=== PATIENT | female | born 1990 | race Caucasian/White ===

== ENCOUNTER → 2023-10-23 11:13 | Outpatient (CLI) | payer OTHER, SELFPAY ==
[2023-10-23 12:09] LABS: Add Manual Diff / Slide Review NO; Basophils Absolute Auto 100 /uL (0-100); Basophils Percent Auto 1.5 % (0-2); Eosinophils Absolute Auto 100 /uL (0-450); Eosinophils Percent Auto 0.9 % (2-4); Hematocrit 43.1 % (36-46); Lymphocytes Absolute Auto 1800 /uL (1100-4500); Lymphocytes Percent Auto 24.7 % (25-40); Mean Corpuscular HGB Conc 34.8 % (30-36); Mean Corpuscular Hemoglobin 31.3 PG (26-34); Mean Corpuscular Volume 89.9 fL (80-100); Monocytes Absolute Auto 400 /uL (0-900); Monocytes Percent Auto 5.5 % (3-14); Neutrophils Absolute Auto 4800 /uL (1500-7000); Neutrophils Percent Auto 67.4 % (50-75); Platelet Count 420 X10^3/uL (150-400); Red Cell Distribution Width 12.3 % (11.6-14.8); White Blood Cell Count 7.2 X10^3/uL (4.5-11.0)
[2023-10-23 12:35] LABS: Alanine Aminotransferase 17 IU/L (<35); Albumin 4.7 g/dL (3.5-5.0); Albumin Globulin Ratio 1.6 (1.0-2.8); Alkaline Phosphatase 97 U/L (38-126); Aspartate Aminotransferase 27 IU/L (14-36); BUN Creatinine Ratio 21.2 (6-22); Bilirubin Total 0.6 mg/dL (0.2-1.3); Blood Urea Nitrogen 14 mg/dL (7-17); Calcium 10.2 mg/dL (8.4-10.2); Carbon Dioxide 24 mmol/L (22-32); Chloride 107 mmol/L (98-107); Estimated Glomerular Filt Rate > 60 mL/min (>60); Glucose 98 mg/dL (70-100); HEMOLYSIS < 15 (0-50); Potassium 3.8 mmol/L (3.4-5.1); Sodium 140 mmol/L (137-145); Total Protein 7.7 g/dL (6.3-8.2)
[2023-10-23 12:48] LABS: Free T3, Triiodothyronine Free 3.52 pg/mL (2.77-5.27); Free T4, Direct Thyroxine 0.98 ng/dL (0.78-2.19)
[2023-10-23 13:01] LABS: Thyroid Stimulating Hormone 1.36 uIU/mL (0.47-4.68)
[2023-10-24 08:15] LABS: Thyroid Peroxidase Antibodies 27 IU/mL (0-34)
[2023-10-24 20:12] LABS: Anti Thyroglobulin Antibody 3.6 IU/mL (0.0-0.9)
[2023-10-26 15:51] LABS: HIV 1 & 2 Ab/Ag 4th Gen Combo NEGATIVE (NEGATIVE); Hep C Virus Ab w/Reflex Quant NEGATIVE s/c (NEGATIVE)
== END ==
PROVIDERS: PCP Family Medicine; Referring Provider Family Medicine; Visit Provider Family Medicine
DX: Z11.4 Encounter for screening for human immunodeficiency virus [HIV] (principal); Z11.59 Encounter for screening for other viral diseases; E04.1 Nontoxic single thyroid nodule; R63.5 Abnormal weight gain; R53.83 Other fatigue
CPT/HCPCS: 36415; 80053; 84439; 84443; 84481; 85025; 86376; 86800; 86803; 87389

== ENCOUNTER → 2023-11-06 10:02 | Outpatient (CLI) | payer OTHER, SELFPAY ==
--- NOTE | 2023-11-06 10:03 | DI.US.S_ITS ---
LIMITED ULTRASOUND OF RIGHT BREAST: 11/06/2023 CLINICAL: Bloody nipple discharge right breast. Comparison is made [facility]. Color flow and real-time ultrasound of the right breast retroareolar were performed. Campbell scale images of the real-time examination were reviewed. No significant abnormalities were seen sonographically in the right breast. No intraductal mass. Minimally prominent ducts are benign. IMPRESSION: BENIGN There is no sonographic evidence of malignancy. Exam findings were conveyed to the patient. Patient describes right bloody nipple discharge. Patient is advised to monitor for significant change. Clinical follow-up is recommended. If symptoms persist, recommend breast MRI for further evaluation. Otherwise, screening mammogram at age 40. This exam was interpreted at Station ID: [id number]. Electronically Signed By: Matt Leone M.D. slc/:11/06/2023 11:44:08 letter sent: Clinical Evaluation Ultrasound BI-RADS: 2 Benign
--- NOTE | 2023-11-06 10:03 | DI.MG.S_ITS ---
BILATERAL DIGITAL DIAGNOSTIC MAMMOGRAM 3D/2D: 11/06/2023 CLINICAL: Right bloody nipple discharge. Baseline exam. No prior exams were available for comparison. Both breasts are heterogeneously dense, which may obscure small masses (category c / 51-75% glandular tissue). No significant masses, calcifications, or other findings are seen in either breast. IMPRESSION: INCOMPLETE: NEEDS ADDITIONAL IMAGING EVALUATION No mammographic evidence of malignancy. A targeted ultrasound is recommended and will immediately follow. Based on the Tyrer Cuzick model (a risk assessment model) the patient's lifetime risk is 13.5% and her 10 year risk is 0.8%. According to the ACR, ACS, and NCCN guidelines, an annual breast MRI exam along with mammogram is recommended if the patient's lifetime risk is 20% or greater. This exam was interpreted at Station ID: [id number]. NOTE: For mammograms, a report in lay terms will be sent to the patient. Approximately 15% of breast malignancies will not be visualized mammographically. In the management of a palpable breast mass, a negative mammogram must not discourage biopsy of a clinically suspicious lesion. Electronically Signed By: Matt Leone M.D. slc/:11/06/2023 11:00:18 ACR BI-RADS Category 0: Incomplete 3340F
== END ==
LOC: MAMMO 10:02
PROVIDERS: PCP Family Medicine; Referring Provider Family Medicine; Visit Provider Family Medicine
DX: R92.2 Inconclusive mammogram (principal); R92.333 Mammographic heterogeneous density, bilateral breasts; N64.52 Nipple discharge
CPT/HCPCS: 76642; 77066; G0279

== ENCOUNTER → 2023-11-09 15:35 | Outpatient (CLI) | payer OTHER, SELFPAY ==
--- NOTE | 2023-11-09 15:36 | DI.US.S_ITS ---
PROCEDURE: US THYROID INDICATIONS: Thyroid nodule, elevated thyroid antibodies TECHNIQUE: Real-time scanning was performed of the thyroid gland, with image documentation. COMPARISON: Prior thyroid ultrasound report dated 06/26/2022.. FINDINGS: Thyroid: Right lobe measures 5.8 x 2.2 x 2.1 cm. Left lobe measures 5.9 x 1.4 x 1.6 cm. Isthmus is 0.3 cm thick. Echotexture is heterogeneous. Nodule number: 1 Location: Right inferior Size: Unchanged at 2.7 cm. Composition: Solid Echogenicity: Isoechoic Shape: wider than tall. Margins: Smooth Echogenic foci: Absent Total points: 3 ACR TI-RADS category: Mildly suspicious IMPRESSION: Stable appearance of 2.7 cm mildly suspicious right thyroid nodule. Based on ACR guidelines, ultrasound-guided FNA of the right nodule is recommended, if the nodules has not previously been sampled with a benign diagnosis. Please see chart below. ACR TI-RADS definitions and recommendations: TI-RADS 1 (benign): 0 points. FNA not needed. TI-RADS 2 (not suspicious): 2 points. FNA not needed. TI-RADS 3 (mildly suspicious): 3 points. * FNA if 2.5 cm or larger, follow up if 1.5 cm or larger (at 1, 3, and 5 years). TI-RADS 4 (moderately suspicious): 4-6 points. * FNA if 1.5 cm or larger, follow up if 1 cm or larger (at 1, 2, 3, and 5 years). TI-RADS 5 (highly suspicious): 7 points or more. * FNA if 1 cm or larger, follow up if 0.5 cm or larger (every year for 5 years). Dictated by: Alan Rizvi [facility] Interpreted: Colleen Gallagher MD on 11/09/2023 at 16:52 Transcribed by: DALIA on 11/09/2023 at 16:54 Approved by: Colleen Gallagher M.D. on 11/09/2023 at 17:22
== END ==
LOC: US 15:36
PROVIDERS: PCP Family Medicine; Referring Provider Family Medicine; Visit Provider Family Medicine
DX: E04.1 Nontoxic single thyroid nodule (principal); R63.5 Abnormal weight gain; R53.83 Other fatigue
CPT/HCPCS: 76536

== ENCOUNTER 2023-12-16 13:01 | Day surgery (SDC) | payer OTHER, SELFPAY ==
--- NOTE | 2023-12-16 | PATH_ITS ---
[facility] Accession Number: [id number] No. of containers..04 Tissue . 01 Material submitted: . PART A: gastrointestinal site - GASTRIC BX PART B: duodenum - DUODENAL BIOPSY PART C: esophagus - ESOPHAGEAL BIOPSY PART D: colon - COLON BIOPSIES . 01 Clinical history: . C) FOR EOE . 01 Diagnosis: Part A: GASTRIC BX: Gastric mucosa with mild chronic inflammation. No Helicobacter organisms identified. No intestinal metaplasia, dysplasia, or malignancy identified. . Part B: DUODENAL BIOPSY: Duodenal mucosa with no diagnostic alterations. No active inflammation and no evidence of celiac disease. . Part C: ESOPHAGEAL BIOPSY: Squamous mucosa with focal slight erosion, suggestive of reflux. No infectious organisms identified. No evidence of eosinophilic esophagitis. . Part D: COLON BIOPSIES: Colonic mucosa with no diagnostic alterations. No active inflammation, granulomas, dysplasia, or malignancy identified. No evidence of colitis. [facility] 12/23/2023 1517 Local . 01 Electronically signed: . Joaquín Espinal MD, Pathologist NPI- [id number] . 01 Gross description: . Part A: GASTRIC BX: Received in formalin are 2 fragment(s) of leavitt, soft tissue measuring 0.3 x 0.2 x 0.2 cm to 0.5 x 0.2 x 0.1 cm submitted entirely in 1 cassette(s) . Part B: DUODENAL BIOPSY: Received in formalin are 2 fragment(s) of leavitt, soft tissue measuring 0.2 x 0.2 x 0.2 cm to 0.3 x 0.3 x 0.2 cm submitted entirely in 1 cassette(s) . Part C: ESOPHAGEAL BIOPSY: Received in formalin are 2 fragment(s) of leavitt, soft tissue measuring 0.2 x 0.2 x 0.2 cm to 0.4 x 0.2 x 0.2 cm submitted entirely in 1 cassette(s) . Part D: COLON BIOPSIES: Received in formalin are multiple fragment(s) of leavitt, soft tissue measuring 0.1 x 0.1 x 0.1 cm to 0.3 x 0.3 x 0.2 cm submitted entirely in 1 cassette(s) /[facility] 12/23/2023 1517 Local . 01 Microscopic: . Part A: GASTRIC BX: An immunohistochemical stain was performed to evaluate for Helicobacter organisms and is negative. The control stains appropriately. * This test was developed and its performance characteristics determined by [facility]. It has not been cleared or approved by the U.[place]. Food and Drug Administration. The FDA has determined that such clearance or approval is not necessary. This test is used for clinical purposes. It should not be regarded as investigational or for research. . Part C: ESOPHAGEAL BIOPSY: An ABPAS stain was performed to evaluate for fungal organisms, and is negative. The control stains appropriately. . 01 Pathologist provided ICD-10: K21.00, K29.50, R19.7 . 01 CPT . 253655, 882489, 580975, 653152, 556271, C59050 Specimen Comment: A courtesy copy of this report has been sent to [phone] Performed at: [address] [address], [place], [place] [id number] MD Joaquín Espinal MD Phone: [phone]
[2023-12-16 13:38] VITALS: BP 128/89; PULSE 115; RESP 16; TEMP 36.6; O2SAT 98
--- NOTE | 2023-12-16 13:53 | PM.PREOP ---
Pre-operative Note Interval Note History & Physical reviewed/Exam performed by Physician: Yes Changes to H&P: No ASA Class (for procedural sedation): II (Will)
--- NOTE | 2023-12-16 13:54 | PM.OP.EC ---
Operative Date/Time/Diagnoses Date of procedure: 12/16/23 Pre-op diagnosis: See indication and findings Procedure & Clinicians Study performed: EGD and colonoscopy Indications: Dyspepsia and diarrhea Surgeon: Chicho San Procedure Notes Procedure in detail: After informed consent was obtained the patient was placed in left lateral decubitus position. Video upper scope was placed into the oropharynx and with the patient's help swallowed into the esophagus. The esophagus stomach and duodenum were carefully examined. On withdrawal, retroflexed view the GE junction was performed. The scope was removed. The patient tolerated procedure well. The patient was then turned and the colonoscope substituted and the colonoscope was easily passed the cecum. Terminal ileum was identified. On slow withdrawal mucosa was carefully examined. The scope was removed. The patient tolerated the procedure well. Blood loss none Complications none Sedation mac Findings EGD 1. Esophageal longitudinal markings though not narrow furrows but rather parallel erythematous streaks. Biopsies taken to rule out eosinophilic esophagitis 2. Scattered gastric erythema in the antrum biopsies taken to rule out Helicobacter 3. Normal duodenal bulb and sweep biopsies taken to rule out celiac disease Colonoscopy 1. Terminal ileum identified and intubated. Mucosa entirely normal 2. Normal colonoscopy to cecum. Random biopsies taken to rule out microscopic colitis Will be in touch regarding biopsy results. She should subsequently follow-up with Arnol ROSARIO
[2023-12-16] MEDS: LACTATED RINGERS 1,000 ML 42 ML IV (13:59)
--- NOTE | 2023-12-16 14:01 | SUR.PREOP ---
patient unable to void. states no way can be at this time. is ok to proceed without HCG. [employer] CON[employer]ANT aware and agrees.
[2023-12-16 14:53] VITALS: BP 83/46; PULSE 95; RESP 20; TEMP 36.3; O2SAT 91
[2023-12-16 14:57] VITALS: BP 94/60; PULSE 90; RESP 19; O2SAT 91
[2023-12-16 15:03] VITALS: BP 96/68; PULSE 104; RESP 13; O2SAT 96
[2023-12-16 15:08] VITALS: BP 97/62; PULSE 94; RESP 15; O2SAT 98
[2023-12-16 15:14] VITALS: BP 106/66; PULSE 95; RESP 14; TEMP 36.3; O2SAT 98
== END 2023-12-16 15:34 | disposition home or self-care (01) ==
PROVIDERS: PCP Family Medicine; Referring Provider Internal Medicine Gastroenterology; Visit Provider Internal Medicine Gastroenterology
PROC: 0DJ08ZZ Inspection of Upper Intestinal Tract, Via Natural or Artificial Opening Endoscopic (ICD-10-PCS; CPT 45380; principal; 2023-12-16 14:00)
PROC: 0DJD8ZZ Inspection of Lower Intestinal Tract, Via Natural or Artificial Opening Endoscopic (ICD-10-PCS; CPT 45378; 2023-12-16 14:00)
DX: R19.7 Diarrhea, unspecified (principal); R10.13 Epigastric pain; K29.50 Unspecified chronic gastritis without bleeding
CPT/HCPCS: 45380; 43239; J2405; J2704

== ENCOUNTER → 2024-03-02 13:58 | Outpatient (CLI) | payer OTHER, SELFPAY ==
[2024-03-02 14:42] LABS: Add Manual Diff / Slide Review NO; Basophils Absolute Auto 100 /uL (0-100); Basophils Percent Auto 0.9 % (0-2); Eosinophils Absolute Auto 100 /uL (0-450); Eosinophils Percent Auto 1.2 % (2-4); Hematocrit 40.8 % (36-46); Hemoglobin 14.5 g/dL (12.0-16.0); Lymphocytes Absolute Auto 1900 /uL (1100-4500); Lymphocytes Percent Auto 20.1 % (25-40); Mean Corpuscular HGB Conc 35.4 % (30-36); Mean Corpuscular Volume 90.3 fL (80-100); Monocytes Absolute Auto 500 /uL (0-900); Neutrophils Absolute Auto 6900 /uL (1500-7000); Neutrophils Percent Auto 72.8 % (50-75); Platelet Count 382 X10^3/uL (150-400); Red Blood Cell Count 4.52 X10^6/uL (4.0-5.2); Red Cell Distribution Width 12.7 % (11.6-14.8); White Blood Cell Count 9.4 X10^3/uL (4.5-11.0)
[2024-03-02 15:06] LABS: HEMOLYSIS < 15 (0-50); Iron 106 ug/dL (37-170)
[2024-03-02 15:07] LABS: Alanine Aminotransferase 19 IU/L (<35); Albumin 4.6 g/dL (3.5-5.0); Albumin Globulin Ratio 1.8 (1.0-2.8); Alkaline Phosphatase 77 U/L (38-126); Aspartate Aminotransferase 27 IU/L (14-36); Bilirubin Total 0.7 mg/dL (0.2-1.3); Blood Urea Nitrogen 14 mg/dL (7-17); Calcium 10.1 mg/dL (8.4-10.2); Carbon Dioxide 21 mmol/L (22-32); Chloride 106 mmol/L (98-107); Creatine Kinase 89 U/L (30-135); Estimated Glomerular Filt Rate > 60 mL/min (>60); Globulin 2.5 g/dL (1.7-4.1); Glucose 105 mg/dL (70-100); HEMOLYSIS < 15 (0-50); Potassium 3.9 mmol/L (3.4-5.1); Sodium 138 mmol/L (137-145); Total Protein 7.1 g/dL (6.3-8.2)
[2024-03-02 15:17] LABS: Percent Iron Saturation 35 % (15-50); Total Iron Binding Capacity 305 ug/dL (265-497); Transferrin 248 mg/dL (206-381)
[2024-03-02 15:25] LABS: Free T3, Triiodothyronine Free 3.75 pg/mL (2.77-5.27); Free T4, Direct Thyroxine 0.97 ng/dL (0.78-2.19)
[2024-03-02 15:38] LABS: Thyroid Stimulating Hormone 0.874 uIU/mL (0.47-4.68)
[2024-03-02 15:45] LABS: Ferritin 51 ng/mL (6-137)
[2024-03-02 16:00] LABS: Vitamin B12 Reflex MMA if <400 497 pg/mL (239-931)
[2024-03-03 19:10] LABS: Anti Thyroglobulin Antibody 1.9 IU/mL (0.0-0.9); Thyroid Peroxidase Antibodies 57 IU/mL (0-34)
== END ==
PROVIDERS: PCP Family Medicine; Referring Provider Family Medicine; Visit Provider Family Medicine
DX: R76.8 Other specified abnormal immunological findings in serum (principal); D75.839 Thrombocytosis, unspecified; R53.82 Chronic fatigue, unspecified; M79.10 Myalgia, unspecified site
CPT/HCPCS: 36415; 80053; 82550; 82607; 82728; 83540; 83550; 84439; 84443; 84481; 85025; 86376; 86800

== ENCOUNTER → 2025-04-25 12:13 | Outpatient (CLI) | payer OTHER, SELFPAY ==
[2025-04-27 13:41] LABS: Trichomoas vaginalis Negative (Negative)
== END ==
PROVIDERS: PCP Family Medicine; Visit Provider Obstetrics & Gynecology
DX: N89.8 Other specified noninflammatory disorders of vagina (principal)
CPT/HCPCS: 81514

== ENCOUNTER → 2025-05-25 09:56 | Outpatient (CLI) | payer OTHER, SELFPAY ==
[2025-05-25 11:04] LABS: Hemoglobin A1C% w Est Avg Glu 4.8 % (4.0-6.0)
[2025-05-25 11:34] LABS: Follicle Stimulating Hormone 6.10 mIU/mL
[2025-05-25 11:49] LABS: Estradiol, Total 46.9 pg/mL
[2025-05-25 12:23] LABS: Urine N gonorrhoeae NOT DETECTED
[2025-05-25 12:24] LABS: Urine Chlamydia NOT DETECTED
== END ==
PROVIDERS: PCP Family Medicine; Referring Provider Obstetrics & Gynecology; Visit Provider Obstetrics & Gynecology
DX: N92.6 Irregular menstruation, unspecified (principal); Z11.3 Encounter for screening for infections with a predominantly sexual mode of transmission
CPT/HCPCS: 36415; 82670; 83001; 83036; 84146; 87491; 87591

== ENCOUNTER → 2025-06-30 10:38 | Outpatient (CLI) | payer OTHER, SELFPAY | PROVIDERS: PCP Family Medicine; Referring Provider Obstetrics & Gynecology; Visit Provider Obstetrics & Gynecology | DX: N92.6 Irregular menstruation, unspecified (principal) | CPT/HCPCS: 36415; 84146 ==